=== PATIENT | male | born 1980 | race Caucasian/White ===

== ENCOUNTER → 2021-03-26 | Outpatient (CLI) | payer BC | LOC: M WUC 10:21 | DX: E55.9 Vitamin D deficiency, unspecified (principal) ==

== ENCOUNTER → 2022-05-28 | Outpatient (CLI) | payer BC ==
[2022-05-28 14:13] LABS: BASO % 0.6 % (0.0-1.0); EOS # 0.1 10^3/uL (0.0-0.5); EOS % 1.6 % (0.0-3.0); HEMATOCRIT 47.3 % (42.0-52.0); HEMOGLOBIN 15.5 g/dl (13.5-17.5); LYMPH # 1.3 10^3/uL (1.5-5.0); MEAN CORPUSCULAR HEMOGLOBIN 31.3 pg (27.0-33.0); MEAN CORPUSCULAR HGB CONC 32.8 g/dl (32.0-36.5); MEAN CORPUSCULAR VOLUME 95.6 fl (80.0-96.0); MONO # 0.6 10^3/uL (0.0-0.8); MONO % 11.4 % (2.0-8.0); NEUTROPHILS # 2.9 10^3/uL (1.5-8.5); NEUTROPHILS % 59.6 % (36.0-66.0); PLATELET COUNT, AUTOMATED 163 10^3/uL (150-450); RED BLOOD COUNT 4.95 10^6/uL (4.30-6.10); WHITE BLOOD COUNT 4.9 10^3/uL (4.0-10.0)
[2022-05-28 14:23] LABS: ERYTHROCYTE SEDIMENTATION RATE 3 mm/hr (0-15)
[2022-05-28 14:39] LABS: ALBUMIN 4.4 G/DL (3.2-5.2); ALKALINE PHOSPHATASE 65 U/L (46-116); ALT/SGPT 27 U/L (7.0-40); AST/SGOT 19 U/L (<34); BILIRUBIN,TOTAL 1.6 MG/DL (0.3-1.2); BLOOD UREA NITROGEN 16 MG/DL (9-23); CALCIUM LEVEL 9.7 MG/DL (8.5-10.1); CARBON DIOXIDE LEVEL 27 MMOL/L (20-31); CHLORIDE LEVEL 102 MMOL/L (98-107); CREATININE FOR GFR 1.04 MG/DL (0.70-1.30); GLOMERULAR FILTRATION RATE > 60.0 (>60); GLUCOSE, FASTING 94 MG/DL (60-100); SODIUM LEVEL 142 MMOL/L (136-145); TOTAL PROTEIN 6.9 G/DL (5.7-8.2)
[2022-05-28 14:40] LABS: C REACTIVE PROTEIN QUANTITATIV < 0.40 MG/DL (<1.0)
== END ==
LOC: M LABDRWAD 07:39
PROVIDERS: ATTEND Internal Medicine Rheumatology
DX: M25.50 Pain in unspecified joint (principal); Z79.1 Long term (current) use of non-steroidal anti-inflammatories (NSAID); M19.90 Unspecified osteoarthritis, unspecified site; M25.60 Stiffness of unspecified joint, not elsewhere classified

== ENCOUNTER 2025-03-30 06:45 | Day surgery (SDC) | payer BC ==
[~2025-03-30] VITALS: Ht 177.8 cm; Wt 81.6 kg
[2025-03-30] MEDS ORDERED: LIDOCAINE 2% 100 MG/5 ML SDV (FOR ANES.) As Ordered ONE (06:52)
[2025-03-30 08:20] VITALS: TEMP 97.6
[2025-03-30 08:40] VITALS: BP 128/87; O2SAT 97
== END 2025-03-30 09:00 | disposition home or self-care (01) ==
LOC: M OPP 06:45
PROVIDERS: ATTEND Surgery
DX: Z12.11 Encounter for screening for malignant neoplasm of colon (principal); D12.6 Benign neoplasm of colon, unspecified; F17.220 Nicotine dependence, chewing tobacco, uncomplicated
CPT/HCPCS: 45385; 88305; J3010